=== PATIENT | male | born 1985 | race Two or more races ===

== ENCOUNTER 2016-04-09 16:14 | Emergency (ER) | payer SELFPAY ==
[2016-04-09 17:11] VITALS: BP 120/73
--- NOTE | 2016-04-09 17:19 | EDM.PDOC ---
ED HPI ENT - General Chief Complaint: ENT Problem Stated Complaint: BROKEN NOSE Time Seen by Provider: 04/09/16 17:14 Source of Information: Reports: Patient History Limitations: Reports: No limitations - History of Present Illness INITIAL COMMENTS - FREE TEXT/NARRATIVE: Pt states that he was running on ice, slipped and fell forward. Denies LOC, but states that he is unsure. Denies headache. no other complaints. Symptom Onset Date: 04/08/16 Location: Reports: nose Quality: Reports: Ache Improves with: Reports: None Worsens with: Reports: Other (snezzing), Movement Associated Symptoms: Reports: no other symptoms - Related Data Allergies/ADRs: Allergies Allergy/AdvReac Type Severity Reaction Status Date / Time codeine Allergy Hives Verified 04/09/16 17:16 diphenhydramine Allergy Hives Verified 04/09/16 17:16 [From Benadryl] Home Meds: Home Meds . [No Known Home Meds] 04/09/16 [History] ED ROS ENT - Review of Systems Review Of Systems: ROS reveals no pertinent complaints other than HPI. HEENT: Reports: Nose pain ED EXAM, ENT - Physical Exam Exam: See Below Exam Limited By: No limitations General Appearance: alert, WD/WN, no apparent distress Eye Exam: bilateral eye: PERRL Nose: no blood, nasal tenderness, nasal ecchymosis, septal deformity (deviated right) Respiratory/Chest: no respiratory distress, lungs clear, normal breath sounds, no accessory muscle use, chest non-tender Cardiovascular: normal peripheral pulses, regular rate, rhythm, no edema, no gallop, no JVD, no murmur, no rub Neurological: alert, oriented, CN II-XII intact, normal cognition, normal gait, normal reflexes, no motor/sensory deficits Course - Vital Signs Last Recorded V/S: Last Vital Signs Temp 98.7 F 04/09/16 17:10 Pulse 95 04/09/16 17:10 Resp 16 04/09/16 17:10 BP 120/73 04/09/16 17:10 Pulse Ox 99 04/09/16 17:10 - Orders/Labs/Meds Meds: Medications Discontinued Medications Generic Name Dose Route Start Last Admin Trade Name Freq PRN Reason Stop Dose Admin Ibuprofen 800 mg 04/09/16 17:32 04/09/16 17:35 Motrin PO 04/09/16 17:33 800 mg ONETIME ONE Administration - Re-Assessments/Exams Free Text/Narrative Re-Assessment/Exam: 04/09/16 18:43 Acute nasal bone fracture noted, no difficulty in breathing noted. Departure - Departure Time of Disposition: 18:44 Disposition: Home, Self-Care 01 Condition: good Clinical Impression: Nasal bone fx-closed Qualifiers: Encounter type: initial encounter Qualified Code(s): S02.2XXA - Fracture of nasal bones, initial encounter for closed fracture Instructions: Nasal Fracture, [id number] Forms: ED Department Discharge Additional Instructions: Take motrin 600 mg three times a day as needed for pain. You need to follow up in an ENT clinic in [place] for reduction of nasal bone. Ice for swelling. No nose blowing and sneeze with your mouth open. Return for any worsening symptoms or difficulty in breathing.
[2016-04-09] MEDS ORDERED: Ibuprofen 800 MG Tab PO ONE (17:32)
== END 2016-04-09 19:00 | disposition home or self-care (01) ==
LOC: DL.ED 16:14
DX: S02.2XXA Fracture of nasal bones, initial encounter for closed fracture (principal); Z88.5 Allergy status to narcotic agent; W00.0XXA Fall on same level due to ice and snow, initial encounter
CPT/HCPCS: 70486; 99283; A9270

== ENCOUNTER 2016-05-01 02:27 | Emergency (ER) | payer SELFPAY ==
[2016-05-01 02:40] VITALS: BP 143/97
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
[2016-05-01] MEDS ORDERED: traMADol 50 MG Tab ONE (03:56)
[2016-05-01] MEDS ORDERED: traMADol 50 MG Tab PO ONE (03:56)
== END 2016-05-01 03:59 | disposition home or self-care (01) ==
LOC: DL.ED 02:27
DX: S00.33XA Contusion of nose, initial encounter (principal); F17.210 Nicotine dependence, cigarettes, uncomplicated; Z88.5 Allergy status to narcotic agent; Y04.0XXA Assault by unarmed brawl or fight, initial encounter
CPT/HCPCS: 70160; 99282; 99283; A9270-GY